=== PATIENT | male | born 1985 | race African-American/Black ===

== ENCOUNTER 2018-12-27 10:47 | Emergency (ER) | payer OTHER ==
[~2018-12-27] VITALS: Ht 182.9 cm; Wt 79.4 kg
[2018-12-27] MEDS ORDERED: NORCO 5-325 TA1 EACH ORAL ×2 (10:52→11:16)
[2018-12-27 11:08] VITALS: BP 148/78
[2018-12-27 11:31] VITALS: BP 148/78
--- NOTE | 2018-12-27 11:32 | NUR ---
ER DISCHARGE NOTE: Patient is cleared to be discharged per ERMD, pt is aox4, on room air, with stable vital signs. pt was given dc and prescription instructions, pt was able to verbalize understanding. pt is able to ambulate with steady gait. pt took all belongings.
--- NOTE | 2018-12-27 13:37 | Emergency Room Report ---
History of Present Illness General Chief Complaint: Pain Source: Medical Record Present Illness HPI 33-year-old male presents ED for evaluation. Complaining of right wrist pain. States he had surgery on his right wrist 3 years ago. States he has intermittent pain since the surgery. Worse recently because he's been lifting heavy items for work. Throbbing, 8 out of 10, nonradiating. States that his [employer] prescription is not helping much. No other aggravating relieving factors. Denies any other associated symptoms Allergies: Coded Allergies: No Known Allergies (Unverified , 12/27/18) Patient History Past Medical History: none Past Surgical History: none Pertinent Family History: none Social History: Denies: smoking, alcohol use, drug use Immunizations: UTD Reviewed Nursing Documentation: PMH: Agreed; PSxH: Agreed Nursing Documentation-PMH Past Medical History: No History, Except For Hx Cardiac Problems: No - bilateral wrist surgery Review of Systems All Other Systems: negative except mentioned in HPI Physical Exam Vital Signs Date Time Temp Pulse Resp B/P (MAP) Pulse Ox O2 Delivery O2 Flow Rate FiO2 12/27/18 10:49 98.2 90 18 148/78 97 Room Air Sp02 EP Interpretation: reviewed, normal General Appearance: no apparent distress, alert, GCS 15, non-toxic Head: normocephalic Eyes: bilateral eye normal inspection, bilateral eye PERRL ENT: normal ENT inspection Neck: normal inspection Respiratory: normal inspection Cardiovascular #1: normal inspection Gastrointestinal: normal inspection Rectal: deferred Genitourinary: no CVA tenderness Musculoskeletal: tender - R wrist Neurologic: alert, oriented x3, responsive, motor strength/tone normal, sensory intact, speech normal Psychiatric: normal inspection Skin: normal inspection Lymphatic: normal inspection Medical Decision Making Diagnostic Impression: Primary Impression: Chronic pain Qualified Codes: G89.29 - Other chronic pain ER Course Hospital Course 33 yo M presents to ED c/o R wrist pain Differential diagnoses include: Fracture, dislocation, sprain, contusion, bursitis Clinical course Patient placed on stretcher. After initial history, physical exam reveals a male in no acute distress. On exam there is a healing surgical scar to the right wrist. There is full range of motion. No bruising or crepitus. Normal range of motion to the fingers. Good pulse. Discussed findings with patient. I explained that I cannot provide medications stronger than [employer] 5 mg. He agreed to a three-day supply of [employer] When I reviewed CURES, patient has no recent prescriptions filled Safe for discharge close outpatient follow-up. I'll provide ortho referrals Diagnosis - chronic pain stable and discharged to home with prescription for [employer]. Followup with ortho. Return to ED if symptoms recur or worsen Please note: Approximately 10 minutes after discharge patient return to the registration desk stating that he was not given his [employer] prescription. Nurse who discharged the patient confirmed that she had provided the prescription to the patient on discharge and he acknowledged receipt. Patient was told that he would not receive any additional prescriptions Last Vital Signs Date Time Temp Pulse Resp B/P (MAP) Pulse Ox O2 Delivery O2 Flow Rate FiO2 12/27/18 11:31 98.2 90 18 148/78 97 Room Air Status: improved Disposition: HOME, SELF-CARE Condition: Stable Scripts Hydrocodone Bit/Acetaminophen 5-325* (NORCO 5-325*) 1 Each Tablet 1 TAB ORAL Q6H PRN for For Pain, #10 TAB 0 Refills Prov: Reginald Douglas MD 12/27/18 Referrals: [facility] (PCP) [facility] Open 24 hour /7 days a week by Appointment Only [address] [facility] [address] Patient Instructions: Chronic Pain Reginald Douglas MD Dec 27, 2018 13:37
== END 2018-12-27 11:20 | disposition home or self-care (01) ==
LOC: EMR 11:15
DX: M25.531 Pain in right wrist (principal); G89.29 Other chronic pain
CPT/HCPCS: 99282

== ENCOUNTER 2019-05-08 16:01 | Emergency (ER) | payer OTHER ==
[~2019-05-08] VITALS: Ht 182.9 cm; Wt 77.1 kg
[~2019-05-08 16:01] MED LIST: NORCO 5-325 TA1 EACH ORAL
[2019-05-08 16:30] VITALS: BP 143/77
[2019-05-08] MEDS ORDERED: AMOXICILLIN500 M1 PO (16:35)
[2019-05-08] MEDS ORDERED: NKM (16:35)
--- NOTE | 2019-05-08 17:06 | Emergency Room Report ---
History of Present Illness General Chief Complaint: Toothache Source: Patient Present Illness HPI 34-year-old male with no significant past medical history here complaining of pain and swelling in the left side of his jaw secondary to tooth infection. Patient reports that he had a root canal on a few years ago however ever since then he refuses to go to a dentist as he has bad memories from going to the dentist. Patient has been taking his mom's [place] 5 mg and is requesting a 10 mg specifically. Patient appears with swollen left mandible with possible tooth infection however vital signs are within normal limits. Denies facial trauma. Reports that he has an appointment coming up with the dentist next Monday. Patient is afebrile denies chest pain, shortness of breath, palpitation, recent URI symptoms. Rating the pain 10 out of 10 without radiation denying tingling numbness. When I explained to the patient that I am going to write for anti-inflammatories as well as antibiotics and no more [place] tens he showed me a bottle of his mom's [place] which is helpful and I advised that if he wants he can continue taking them however I am not going to write for more [place] patient and starts bringing of the chronic wrist pain that he has had for years after a fracture that occurred 3 years ago as well as his anxiety requesting more medication. Allergies: Coded Allergies: No Known Allergies (Unverified , 05/08/19) Patient History Past Medical History: see triage record Past Surgical History: unable to obtain Pertinent Family History: none Social History: Reports: smoking Immunizations: UTD Reviewed Nursing Documentation: PMH: Agreed; PSxH: Agreed Nursing Documentation-PM Past Medical History: No History, Except For Hx Cardiac Problems: No - bilateral wrist surgery Review of Systems All Other Systems: negative except mentioned in HPI Physical Exam Vital Signs Date Time Temp Pulse Resp B/P (MAP) Pulse Ox O2 Delivery O2 Flow Rate FiO2 05/08/19 16:30 98.8 94 16 143/77 (99) 98 Room Air Sp02 EP Interpretation: reviewed, normal General Appearance: normal inspection, well appearing, no apparent distress, alert, GCS 15 Head: normocephalic, atraumatic Eyes: bilateral eye normal inspection, bilateral eye PERRL ENT: normal pharynx, other - Erythema of left lower mandible Neck: normal inspection, full range of motion, supple, no meningismus, no bony tend Respiratory: normal inspection, chest non-tender, lungs clear, no respiratory distress, no wheezing Cardiovascular #1: normal inspection, no edema, no gallop, no murmur Gastrointestinal: normal inspection, soft, no mass Genitourinary: no CVA tenderness Musculoskeletal: normal inspection, back normal Neurologic: normal inspection, alert, oriented x3, responsive Psychiatric: normal inspection, judgement/insight normal Skin: no rash, palpation normal, normal color Lymphatic: normal inspection, no adenopathy Medical Decision Making PA Attestation Diagnosis and treatment plans were reviewed and discussed with my supervising physician Dr. Bullock Diagnostic Impression: Primary Impression: Toothache ER Course 34-year-old male with no significant past medical history here complaining of pain and swelling in the left side of his jaw secondary to tooth infection. Patient reports that he had a root canal on a few years ago however ever since then he refuses to go to a dentist as he has bad memories from going to the dentist. Patient has been taking his mom's [place] 5 mg and is requesting a 10 mg specifically. Patient appears with swollen left mandible with possible tooth infection however vital signs are within normal limits. Denies facial trauma. Reports that he has an appointment coming up with the dentist next Monday. Patient is afebrile denies chest pain, shortness of breath, palpitation, recent URI symptoms. Rating the pain 10 out of 10 without radiation denying tingling numbness. When I explained to the patient that I am going to write for anti-inflammatories as well as antibiotics and no more [place] tens he showed me a bottle of his mom's [place] which is helpful and I advised that if he wants he can continue taking them however I am not going to write for more [place] patient and starts bringing of the chronic wrist pain that he has had for years after a fracture that occurred 3 years ago as well as his anxiety requesting more medication. Ddx considered but are not limited to: Tooth infection, toothache, drug-seeking behavior, peritonsillar abscess Vital signs: are WNL, pt. is afebrile H&PE are most consistent with: Tooth infection and to take ORDERS: Augmentin, ibuprofen 800 ED INTERVENTIONS: None required at this time. DISCHARGE: At this time pt. is stable for d/c to home. Will provide printed patient care instructions, and any necessary prescriptions. Care plan and follow up instructions have been discussed with the patient prior to discharge. Patient to follow-up with a dentist I refused to give any more controlled substances patient keep asking for them and also wanted anxiety medication. Patient appears to be under the influence of unknown substance. At this time no imaging needed as this is chronic and has been going on intermittently for the past few years Last Vital Signs Date Time Temp Pulse Resp B/P (MAP) Pulse Ox O2 Delivery O2 Flow Rate FiO2 05/08/19 16:30 98.8 94 16 143/77 (99) 98 Room Air Disposition: HOME, SELF-CARE Condition: Stable Scripts Ibuprofen (Ibu) 800 Mg Tablet 800 MG PO TID, #30 TAB Prov: Jj Wellington 05/08/19 Amoxicillin/Potassium Clav 875-125* (AUGMENTIN 875-125 TABLET*) 1 Each Tablet 1 TAB ORAL TWICE A DAY for 10 Days, #20 TAB Prov: Jj Wellington 05/08/19 Patient Instructions: Dental Pain Additional Instructions: You have been having this tooth pain for years and also has been refusing to see a dentist at this time no further treatment is given the emergency room as this is chronic you also need to follow-up with a primary care provider for your chronic wrist pain as you had a fracture 3 years ago. Jj Wellington May 08, 2019 17:06
[2019-05-08] MEDS ORDERED: IBU800 MG PO (17:07)
[2019-05-08] MEDS ORDERED: AUGMENTIN 875-1 EAC1 ORAL (17:07)
[2019-05-08 17:40] VITALS: BP 143/77
--- NOTE | 2019-05-08 17:40 | NUR ---
ER DISCHARGE NOTE: Patient is cleared to be discharged per ERMD, pt is aox4, on room air, with stable vital signs. pt was given dc and prescription instructions, pt was able to verbalize understanding, pt id band and iv site removed without complications. pt is able to ambulate with steady gait. pt took all belongings.
== END 2019-05-08 17:41 | disposition home or self-care (01) ==
LOC: EMR 17:08
DX: K08.89 Other specified disorders of teeth and supporting structures (principal); F17.200 Nicotine dependence, unspecified, uncomplicated
CPT/HCPCS: 99282